=== PATIENT | female | born 1950 | race Caucasian/White ===

== ENCOUNTER → 2017-07-10 | Outpatient (CLI) | payer BC ==
[~2017-07-10] MED LIST: CALC8.5C PO
--- NOTE | 2017-07-10 11:46 | DIAGNOSTIC IMAGING REPORT ---
R HEEL MIN 2 VIEWS CLINICAL HISTORY: RT HEEL PAIN COMPARISON: None. DISCUSSION: Operative changes consistent with pain placement of the distal third tibia as well as fibula. The calcaneus is unremarkable. There is a small heel spur. Subtalar joint is intact. There is no evidence for soft tissue swelling. IMPRESSION: Small heel spur. Otherwise negative study calcaneus. Postoperative changes distal tibia as well as fibula The above report was generated using voice recognition software. It may contain grammatical, syntax or spelling errors. Electronically signed by: Ganga Watson M.D. 07/10/2017 11:45 AM Dictated Date/Time: 07/10/2017 11:44 AM
== END | disposition home or self-care (01) ==
LOC: C.RAD1850 11:29
PROVIDERS: ATTEND Internal Medicine
DX: M77.31 Calcaneal spur, right foot (principal)

== ENCOUNTER → 2017-11-13 | Outpatient (CLI) | payer BC ==
[2017-11-13 15:46] LABS: BASO % 0.5 %; BASO ABS # 0.03 K/uL (0-0.2); EOS % 6.1 %; EOS ABS # 0.35 K/uL (0-0.5); HEMATOCRIT 43.8 % (37-47); IG# 0.01 K/uL (0.00-0.02); LYMPH % 47.6 %; LYMPH ABS # 2.72 K/uL (1.2-3.4); MEAN CELL VOLUME 88.7 fL (80-100); MEAN CORPUSCULAR HEMOGLOBIN 30.4 pg (25-34); MEAN CORPUSCULAR HGB CONC 34.2 g/dl (32-36); MEAN PLATELET VOLUME 11.8 fL (7.4-10.4); MONO % 7.2 %; MONO ABS # 0.41 K/uL (0.11-0.59); NEUT % 38.4 %; PLATELET COUNT 208 K/uL (130-400); RED CELL DISTRIBUTION WIDTH CV 12.5 % (11.5-14.5); WHITE BLOOD COUNT 5.72 K/uL (4.8-10.8)
[2017-11-13 16:21] LABS: ALBUMIN 4.2 gm/dl (3.4-5.0); ALT/SGPT 30 U/L (12-78); AST/SGOT 27 U/L (15-37); BLOOD UREA NITROGEN 15 mg/dl (7-18); CARBON DIOXIDE 28 mmol/L (21-32); CHOLESTEROL 182 mg/dl (0-200); CREATININE 0.82 mg/dl (0.60-1.20); GLUCOSE 79 mg/dl (70-99)
[2017-11-13 17:01] LABS: ALKALINE PHOSPHATASE 88 U/L (45-117); LDL CHOLESTEROL CALCULATED 90 mg/dl; POTASSIUM 3.7 mmol/L (3.5-5.1); SODIUM 141 mmol/L (136-145); TOTAL PROTEIN 7.4 gm/dl (6.4-8.2)
== END ==
LOC: C.LAB1850 14:16
PROVIDERS: ATTEND Internal Medicine
DX: R39.15 Urgency of urination (principal); M81.0 Age-related osteoporosis without current pathological fracture; Z13.220 Encounter for screening for lipoid disorders; Z13.1 Encounter for screening for diabetes mellitus; Z13.0 Encounter for screening for diseases of the blood and blood-forming organs and certain disorders involving the immune mechanism